=== PATIENT | female | born 1955 | race Caucasian/White ===

== ENCOUNTER → 2017-03-07 | Outpatient (CLI) | payer OTHER ==
[~2017-03-07] MED LIST: CLR10 PO; DVN80 PO; FLUT0.0529; HYDR25TA5 PO; IBUP-1050 PO; MULT-413 PO; OLOP0.1S3 OP; OMEP40CA PO; ZNTT/150 PO
--- NOTE | 2017-03-08 07:53 | MAMMOGRAPHY REPORT ---
BILATERAL DIGITAL SCREENING MAMMOGRAM TOMOSYNTHESIS WITH CAD: 03/07/2017 CLINICAL HISTORY: Routine screening. Patient has no complaints. TECHNIQUE: Breast tomosynthesis in addition to standard 2D mammography was performed. Current study was also evaluated with a Computer Aided Detection (CAD) system. COMPARISON: Comparison is made to exams dated: 02/09/2016 mammogram, 02/04/2015 mammogram, 04/09/2014 mammogram, 04/09/2014 aspiration, 03/02/2014 mammogram, and 03/02/2014 ultrasound - [facility]. BREAST COMPOSITION: There are scattered areas of fibroglandular density in both breasts. FINDINGS: No suspicious masses, calcifications, or areas of architectural distortion are noted in ei ther breast. There has been no significant interval change compared to prior exams. Scattered bilate ral benign calcifications are again noted. Mass with associated coarse calcifications in the left up per inner quadrant is stable and compatible with a degenerating fibroadenoma. IMPRESSION: ACR BI-RADS CATEGORY 2: BENIGN There is no mammographic evidence of malignancy. A 1 year screening mammogram is recommended. The pa tient will receive written notification of the results. Approximately 10% of breast cancers are not detected with mammography. A negative mammographic report should not delay biopsy if a clinically suggestive mass is present. Elena Avery M.D. /:03/07/2017 16:30:32 Draw Operator: Kami LYNCH)(Vicky), [facility] letter sent: Normal 1/2 BI-RADS Code: ACR BI-RADS Category 2: Benign
== END | disposition home or self-care (01) ==
LOC: C.MAMM 16:04
PROVIDERS: ATTEND Family Medicine
DX: Z12.31 Encounter for screening mammogram for malignant neoplasm of breast (principal)

== ENCOUNTER 2018-12-01 06:58 | Observation (INO) ==
--- NOTE | 2018-11-24 14:48 | Anesthesiology Consultation ---
Date of Service November 24, 2018 Assessment & Plan (1) Encounter for pre-operative examination: CHECK BSG AM DOS Chart Review Chart Review: Acceptable Risk for Surgery and Patient NOT seen in Pre Admission Testing History Surgery Operation Date: 12/01/18 08:20 Proposed Procedures p Bilateral Mastectomy - Caden Earl MD Height/Weight Height: 5 ft 3.5 in Weight: 106.594 kg Allergies Allergy/AdvReac Type Severity Reaction Status Date / Time adhesive Allergy Unknown ITCHING Verified 11/24/18 08:03 ketoconazole Allergy Unknown UNKNOWN Verified 11/24/18 08:03 pantoprazole Allergy Unknown UNKNOWN Verified 11/24/18 08:03 REACTION, PT. CAN TAKE PRILOSEC Penicillins Allergy Unknown HIVES Verified 11/24/18 08:03 losartan AdvReac Unknown HEARTBURN Verified 11/24/18 08:03 levofloxacin [From Levaquin] AdvReac Migraine Unverified 11/24/18 08:03 Medications Home Medications Medication Instructions Recorded Confirmed Last Taken allopurinol 300 mg PO QAM 07/14/18 11/24/18 Unknown biotin 1,000 mcg PO DAILY 07/14/18 11/24/18 Unknown candesartan [Atacand] 16 mg PO QAM 07/14/18 11/24/18 Unknown cholecalciferol (vitamin D3) 1,000 unit PO DAILY 07/14/18 11/24/18 Unknown [Vitamin D3] hydrochlorothiazide 12.5 mg PO QAM 07/14/18 11/24/18 Unknown levothyroxine 37.5 mcg PO HS 07/14/18 11/24/18 Unknown loratadine 10 mg PO DAILY PRN 07/14/18 11/24/18 Unknown lfkxfvhkemhl-Pv-gnpd-minerals 1 tab PO DAILY 07/14/18 11/24/18 Unknown [Multiple Vitamin, Womens] omeprazole 40 mg PO QAM 07/14/18 11/24/18 Unknown triamcinolone acetonide 1 applic TOPICAL BID PRN 07/14/18 11/24/18 Unknown anastrozole 1 mg PO QAM 11/24/18 11/24/18 Unknown Past Medical History Medical History Intracranial meningioma (Resolved 01/05/13) s/p resection 2010. Breast cancer RIGHT BREAST CANCER. DX'D NOVEMBER 2017. CHEMOTHERAPY (LAST 6.2019) Hypertension Diabetes mellitus, type 2 NO MEDICATIONS CURRENTLY. CONTROLING WITH DIET AND EXERCISE. GERD (gastroesophageal reflux disease) Hypothyroidism MALToma HX Morbid obesity Osteoarthritis Port-A-Cath in place Pulmonary embolism 2013. UNKNOWN REASON. Stage 3 chronic kidney disease Past Family History Family History Mother Family history of diabetes mellitus Grandmother (Maternal) Family history of diabetes mellitus Aunt Family history of diabetes mellitus Past Surgical History Surgical History H/O arthroscopy of shoulder BILATERAL History of arthroscopy LEFT History of bilateral tubal ligation History of carpal tunnel release BILATERAL History of section X1 History of cholecystectomy History of colonoscopy History of craniotomy 2010 [facility] ([place]), "Smooth IV induction; intubation with MAC 3 x 1 attempt. Grade II view." History of dilatation and curettage History of esophagogastroduodenoscopy (EGD) History of hysterectomy VAGINAL History of repair of rotator cuff RIGHT Hx of lumpectomy X2 RIGHT BREAST WITH LYMPH NODES REMOVED Social History Smoking Status: Never smoker Do You Dip or Chew Tobacco: No Hx Alcohol Use: No Hx Substance Use: No substance use type: does not use Testing Laboratory Results 11/19/18 WBC: 5.95 H/H: 12.5/38.5 PLATELETS: 107 SODIUM: 141 POTASSIUM: 4.0 CHLORIDE: 102 CO2: 29 BUN: 12 CREATININE: 1.0 GLUCOSE: 131 Electrocardiogram Date: 07/14/18 Findings: + NSR @ (79) Echocardiogram Date: 08/15/18 EF: 60-65% Normal LV size and wall thickness. LVEF 60 to 65%. Abnormal septal motion. RV well not visualized. Grossly normal size and function. No significant valvular pathology. Compared with prior study on 06/01/2013, no significant changes. Other Testing Chest CTA 07/14/18 IMPRESSION: 1. No acute aortic pathology or evidence of pulmonary thromboembolic disease. 2. No focal airspace consolidation to suggest pneumonia. 3. Mild bilateral bronchial wall thickening suggests bronchitis or reactive airway disease. 4. Cholecystectomy.
[~2018-12-01 06:58] MED LIST changes: -CLR10 PO; +DEXAMETHASONE SOD INJ 4 MG/ML VIAL ONE; -DVN80 PO; -FLUT0.0529; +GLYCOPYRROLATE 0.2 MG/ML VIAL ONE; -HYDR25TA5 PO; -IBUP-1050 PO; +LARYING-O-JET KIT (LTA) ONE; +LIDOCAINE HCL 2% 2 ML VIAL/AMP(20MG/ML) INFIL ONE; +LR 15ML/HR IV SCH; +MIDAZOLAM HCL 1 MG/ML 2ML VIAL ONE; -MULT-413 PO; +NEOSTIGMINE METHYLSULFATE 5 MG/5 ML SYR ONE; -OLOP0.1S3 OP; -OMEP40CA PO; +ONDANSETRON INJ 2 MG/ML 2 ML VIAL ONE; +PHENYLEPHRINE 100MCG/ML 5ML SYR ONE; +PROPOFOL IV EMULSION 10 MG/ML 20 ML VIAL IV ONE; +ROCURONIUM BROMIDE 10 MG/ML 5 ML VIAL ONE; -ZNTT/150 PO; +ePHEDrine sulfate 50 MG/ML SYR ONE; +fentaNYL citrate 100 MCG/2 ML VIAL ONE
[2018-12-01] MEDS ORDERED: ATROPINE SULFATE 0.1 MG/ML 10ML SYR IV PRN (07:44)
[2018-12-01] MEDS ORDERED: LABETALOL HCL IV 5 MG/ML 20ML IV PRN (07:44)
[2018-12-01] MEDS ORDERED: HYDROmorphone INJ 1 MG/ML SYRINGE IV PRN (07:44)
[2018-12-01] MEDS ORDERED: ONDANSETRON INJ 2 MG/ML 2 ML VIAL IV PRN ×2 (07:44→13:25)
[2018-12-01] MEDS ORDERED: PROMETHAZINE HCL 12.5 MG in SODIUM CHLORIDE 0.9% 50 ML IV PRN (07:44)
[2018-12-01] MEDS ORDERED: METHYLENE BLUE 0.5% 10 ML VIAL ONE (07:59)
--- NOTE | 2018-12-01 08:10 | History & Physical Bridge Note ---
Date of Service December 01, 2018 History & Physical Bridge Note I have examined the patient, reviewed the History & Physical and in the interval since the performance of the History & Physical I have noted the following changes of clinical significance: no changes noted
[2018-12-01] MEDS ORDERED: HYDROmorphone INJ 2 MG/ML SYR/VIAL ONE (09:13)
[2018-12-01] MEDS ORDERED: ONDANSETRON INJ 2 MG/ML 2 ML VIAL ONE (09:38)
[2018-12-01] MEDS ORDERED: DEXAMETHASONE SOD INJ 4 MG/ML VIAL ONE (09:38)
[2018-12-01] MEDS ORDERED: PHENYLEPHRINE HCL 10 MG/ML VIAL ONE (10:41)
[2018-12-01] MEDS ORDERED: GLYCOPYRROLATE 0.2 MG/ML VIAL ONE (10:46)
[2018-12-01] MEDS ORDERED: NEOSTIGMINE METHYLSULFATE 5 MG/5 ML SYR ONE (10:46)
[2018-12-01] MEDS ORDERED: ROCURONIUM BROMIDE 10 MG/ML 5 ML VIAL ONE (10:46)
--- NOTE | 2018-12-01 11:49 | Post Operative Brief Note ---
Immediate Post Op Note v1 Date of Surgery December 01, 2018 Pre & Post Diagnosis Operation Date: 12/01/18 08:20 Pre-Op Diagnosis: Malignant Neoplasm of Central Portion of Right female breast, unspecified estrogen receptor status Post-Op Diagnosis: Malignant Neoplasm of Central Portion of Right female breast, unspecified estrogen receptor status Procedure Operation Date: 12/01/18 08:20 Actual Procedures p Bilateral Mastectomy(Bilateral) - Caden Earl MD Surgeon Caden Earl MD Hospice Social Worker Mary Carranza PA-C Estimated Blood Loss 50 Findings Consistent with Post-Op Diagnosis Specimens Left breast Right breast Drains Kolton-Hollingsworth Drain (10 flat, bilateral breasts) Anesthesia Type General Complications none
--- NOTE | 2018-12-01 12:45 | Anesthesiology Progress Note ---
Date of Service December 01, 2018 Anesthesia Post Procedure Vital Signs Vital Signs: Temp Pulse Resp BP Pulse Ox 12/01/18 12:35 86 15 108/85 96 12/01/18 12:25 99 H 15 108/85 99 12/01/18 12:15 90 15 121/73 96 12/01/18 12:05 36 C L 105 H 20 129/61 94 12/01/18 07:33 36.8 C 80 17 130/84 94 Transfer of Care Handoff Completed per policy Notes Mental Status: alert / awake / arousable Patient Amnestic to Procedure: Yes Nausea / Vomiting: adequately controlled Pain: adequately controlled Airway Patency, RR, SpO2: stable & adequate BP & HR: stable & adequate Hydration State: stable & adequate Anesthetic Complications: no major complications apparent
[2018-12-01] MEDS ORDERED: MoRPHine SULFATE 4 MG/ML 1 ML CARP\\VIAL IV PRN (13:25)
[2018-12-01] MEDS ORDERED: LORATADINE 10 MG TAB PO PRN (13:25)
[2018-12-01] MEDS ORDERED: OXYCODONE/ACETAMINOPHEN 5mg/325mg TAB PO PRN (13:25)
[2018-12-01] MEDS ORDERED: LEVOTHYROXINE SODIUM 75 MCG TABLET PO SCH (21:00)
--- NOTE | 2018-12-02 01:43 | Operative Report ---
DATE OF OPERATION: 12/01/2018 PREOPERATIVE DIAGNOSIS: Recurrent cancer of the right breast. POSTOPERATIVE DIAGNOSIS: Recurrent cancer of the right breast. PROCEDURE: Bilateral mastectomy. SURGEON: Caden Earl MD NEON SIGN WORKER: Mary Carranza PA-C FINDINGS: At no time was the biopsy cavity encountered in the right breast. There was a lot of scar tissue and thickening of the attachments of the prepectoral fascia to the underlying pectoralis major muscle. The patient had previously had an axillary lymph node dissection, so that was not included in the procedure. There were no abnormalities noted of the left breast. TECHNIQUE: The patient was given a general anesthetic and the area was prepped and draped in the usual sterile fashion. The sternal borders, clavicles, and inferior breast crease were marked. The right breast was approached first. The skin incision was sketched in an elliptical fashion on the breast. The superior portion of that incision was made and hemostasis was obtained using electrocautery. The superior flap was then created keeping the flap thin. It was dissected up to the clavicle and from the lateral border of the sternum laterally to beyond the lateral border of pectoralis major. The inferior portion of the elliptical incision was then made, carried down through the subcutaneous tissue and the inferior flap was performed, keeping the breast tissue superiorly and the flap inferiorly and this was dissected down to the superior aspect of the rectus fascia along the length of that incision as well. Hemostasis was obtained using electrocautery and there were several enlarged veins that had to be clamped and ligated with 2-0 Vicryl ties. Once that dissection was completed, I then worked laterally, freeing the attachments of the skin and working up towards the axilla to include the tail of the breast. Then beginning medially the prepectoral fascia was opened and the prepectoral fascia was then peeled off the underlying fascia working from medial to lateral. This required dissection using cautery and some sharp dissection in that the attachments were more thickened. I eventually reached the lateral border of the pectoralis major muscle and then dissected the tissue away from the chest wall on that side leaving only the remaining skin attachments laterally and these were divided under direct vision using cautery. The breast was removed. It was marked medially with a Vicryl stitch. Meticulous hemostasis was then obtained throughout the prepectoral area as well as laterally. The wound was irrigated and the irrigation was removed. A small stab incision was made inferior to the incision through which was brought a 10-mm Kolton-Hollingsworth flat drain. This was secured at the skin level with a 3-0 nylon. The skin incision was then closed using interrupted 2-0 Vicryl in the deep subcutaneous tissue, a running 3-0 Vicryl in the superficial subcutaneous tissue, and a running 4-0 Monocryl for the skin. Attention was then turned to the left breast. This too had been marked. The skin incision was sketched and the elliptical incision was made. The superior portion of the incision was made first and the superior skin flap was created from the lateral border of the sternum up to the clavicle and then laterally to the lateral border of pectoralis major. The skin attachments to the tail of the breast were divided as well. Hemostasis was again obtained using cautery and there were some large veins encountered there that had to be clamped and divided as well. The inferior portion of the incision was made and carried through the subcutaneous tissue and then working down towards the superior aspect of the rectus fascia, the dissection was performed. Once that was completed, working from medial again to lateral the prepectoral fascia was peeled off the underlying pectoralis major muscle. This dissection was easier than the right side in that there were none of the scarred attachments. This dissection was then carried laterally beyond pectoralis major muscle and then the dissection off the chest wall was performed. The final lateral attachments of the skin were divided. Inferiorly, it appeared as though the flap was thick. I then performed further dissection beginning at the subcutaneous level and working down towards the fascia again. There was about 2 cm thick tissue across the inferior portion of the pectoralis major that was . This was then peeled off pectoralis major underneath and sent as a separate specimen. The flap was then felt to be of appropriate thickness. Meticulous hemostasis was obtained using electrocautery. A separate stab incision was made inferior to the incision through which a 10-mm Kolton-Hollingswotrh was brought. It was placed across the chest wall and secured with 3-0 nylon at the skin level. The flaps were then approximated. There was overlapping skin and the superior flap was felt to be redundant. This was resected. A line for resection was marked and the skin incision was made and was removed using cautery. This allowed for an approximation of the edges of the skin without tension, but without redundancy. The deep subcutaneous tissue was closed with interrupted 2-0 Vicryl. The superficial subcutaneous tissue was closed with running 3-0 Vicryl and the skin was closed with 4-0 Monocryl in a running subcuticular fashion. The skin was cleansed, dried, benzoin placed, and Steri-Strips applied on both incisions. A dressing was placed. The estimated blood loss was 50 mL. Sponge, needle and instrument counts were correct prior to closure. The patient tolerated the surgical procedure without complication and was transferred to recovery. I attest to the content of the Intraoperative Record and any orders documented therein. Any exception s are noted below.
[2018-12-02] MEDS ORDERED: OMEPRAZOLE 20 MG CAPCR PO SCH (09:00)
[2018-12-02] MEDS ORDERED: CANDESARTAN CILEXETIL PO SCH (09:00)
[2018-12-02] MEDS ORDERED: ANASTROZOLE 1 MG TAB PO SCH (09:00)
[2018-12-02] MEDS ORDERED: CHOLECALCIFEROL 1,000 UNITS TAB PO SCH (09:00)
[2018-12-02] MEDS ORDERED: hydroCHLOROthiazide 25 MG TAB PO SCH (09:00)
--- NOTE | 2018-12-02 10:59 | Surgery Progress Note ---
Date of Service December 02, 2018 Assessment & Plan (1) Breast cancer: POD #1 S/P bilateral mastectomies Doing well Drains functioning Dressings changed Ambulating Can D/C to home Drain care discussed Activity instructions discussed F/U has been scheduled Subjective POD #1 s/P bilateral mastectomy Pain is mild and only with movement Tolerated regular diet Had nausea yesterday, none today J-P #1: 40 cc last shift; J-P #2: 30 cc last shift Physical Exam Chest (Breasts): Additional Comments: Bilateral mastectomy incisions clean and dry, no erythema Results & Data Vital Signs (Past 12 Hours) Vital Signs Temp Pulse Resp BP Pulse Ox 12/02/18 08:40 110/74 12/02/18 07:31 36.6 C 97 H 18 94/58 L 99 12/02/18 03:16 36.9 C 94 H 15 101/64 98 12/01/18 23:06 36.5 C 94 H 15 103/65 97
--- NOTE | 2018-12-05 07:36 | Discharge Summary ---
Date of Service December 05, 2018 Admission HPI Per Admitting Provider Fatemeh presented to [facility] for bilateral simple mastectomy for recurrent right breast cancer and prophylactic left mastectomy by Dr. Earl. History of prior right lumpectomy with positive margins and re- excision with positive margins of DCIS. She also had right axillary dissection and chemotherapy. Principal Diagnosis Recurrent right bright cancer Discharge Data Allergies Allergy/AdvReac Type Severity Reaction Status Date / Time adhesive Allergy Unknown ITCHING Verified 12/01/18 07:26 ketoconazole Allergy Unknown UNKNOWN Verified 12/01/18 07:26 pantoprazole Allergy Unknown UNKNOWN Verified 12/01/18 07:26 REACTION, PT. CAN TAKE PRILOSEC Penicillins Allergy Unknown HIVES Verified 12/01/18 07:26 losartan AdvReac Unknown HEARTBURN Verified 12/01/18 07:26 levofloxacin [From Levaquin] AdvReac Migraine Unverified 12/01/18 07:26 Procedures Performed Operation Date: 12/01/18 08:20 Actual Procedures p Bilateral Mastectomy(Bilateral) - Caden Earl MD Hospital Course (1) Breast cancer: Patient was taken to operating room for bilateral simple mastectomy without reconstruction by Dr. Earl. Patient tolerated procedure well and was transferred to recovery and then to medical/surgical floor for post op care. She was started on regular diet, Percocet prn pain, home medications, activity as tolerated, and surgical drains were monitored. POD #1 vitals stable, pain controlled, drains funcitioning. Patient was discharged home on POD # 1 in sta ble condition. Total Time Total Time Spent Total Time Spent (In Minutes): 20 Total Time Includes: Examination of the Patient, Discharge Planning and Medication Reconciliation Discharge Plan Discharge Items Patient Disposition: Home - Self-Care Reason For Visit: Malignant Neoplasm of Central Portion of Right Fem Discharge Diagnosis: S/P bilateral mastectomy Discharge Goals: Improve disease control Activity: Per 'Additional Instructions' section Non-emergency contact: Surgeon Call non-emergency contact if: your temperature is above 101.5 and your wound has increased redness Follow-up/Referrals: Jose Sarah MD [Primary Care Provider] - Diet: Regular Addtl Provider Instructions: No lifting more than 10 pounds Empty drains and record amounts and times Change dressing daily Sponge bath until drains are removed Prescriptions: New oxycodone-acetaminophen [Percocet] 5-325 mg Tablet 1 tab PO Q4H PRN (Reason: pain) Qty: 10 RF: 0 Continued anastrozole 1 mg Tablet 1 mg PO QAM RF: 0 levothyroxine 75 mcg tablet 37.5 mcg PO HS RF: 0 hydrochlorothiazide 25 mg tablet 12.5 mg PO QAM RF: 0 allopurinol 300 mg tablet 300 mg PO QAM RF: 0 candesartan [Atacand] 16 mg Tablet 16 mg PO QAM RF: 0 omeprazole 40 mg capsule,delayed release(DR/EC) 40 mg PO QAM RF: 0 loratadine 10 mg Tablet 10 mg PO DAILY PRN (Reason: Allergy Symptoms) RF: 0 Multiple Vitamin, Womens Tablet 1 tab PO DAILY RF: 0 cholecalciferol (vitamin D3) [Vitamin D3] 1,000 unit Tablet 1,000 unit PO DAILY RF: 0 biotin 1,000 mcg Tablet,Chewable 1,000 mcg PO DAILY RF: 0 triamcinolone acetonide 0.1 % Cream 1 applic TOPICAL BID PRN (Reason: Skin Irritation) RF: 0 Stand-Alone Forms: [employer] [facility], [facility]/Other Patient Handouts: Tube Kolton Hollingsworth Drainage Care Discharge Orders: Discharge Order (Routine); Ordered 12/02/18 Ordered By: Caden Earl Admission Data Admit Date/Time: 12/01/18 12:55 Attending Provider: Caden Earl Admit Provider: Caden Earl Primary Care Provider: Jose Sarah Service: Surgical Services Other Interventions: Discharge Summary Assessment (RN) Last Done: 12/02/18 12:44 Pending Studies at Discharge: Yes Studies:: Pathology DC Date/Time DO NOT enter until pt leaves facility: 12/02/18 14:04
--- NOTE | 2018-12-12 15:48 | Surgery Consultation ---
Date of Consultation December 12, 2018 Assessment & Plan (1) Status post bilateral mastectomy: There does not appear to be infection or active bleeding at the present time. Would continue with drains for now. (2) Hypotension: Etiology of this is unclear. Her white blood cell count is elevated. The source is not obvious. It does not appear to be the surgical sites. Blood cultures were drawn and are pending. The 8 port is a potential source. Testing for etiology as per internal medicine. Dr. Birch will be covering for me over the weekend. History of Present Illness Requesting Physician: Dr. Simeon Attending Physician: Caden Ealr MD History of Present Illness I have been asked by Dr. Simeon 62-year-old female that we sent over from the office today for evaluation. The patient underwent a bilateral mastectomy on December 01. She was discharged the next day. She was doing well until yesterday when she began to feel weak. She described dizziness in the office. She had some red material coming from the drain on the right. The left-sided drain was more of a serous color. She has had no pain of the chest wall. There is been no erythema of the skin. There is been no erythema around the drain sites. She has had 20 to 50 cc/day coming from the left-sided drain and has had 150 cc/day of clear to pink material from the right-sided drain. She denies fever. She has not had any chills. She denies dysuria and hematuria. She has not had any shortness of breath. The dizziness is mostly when she is sitting or standing. It seems to resolve if she lies down. She has no nausea or vomiting. She has been able to eat. In the office today she had evidence of orthostatic hypotension and therefore I recommended she present to the emergency room. Allergies Allergy/AdvReac Type Severity Reaction Status Date / Time adhesive Allergy Unknown ITCHING Verified 12/12/18 13:27 ketoconazole Allergy Unknown UNKNOWN Verified 12/12/18 13:27 pantoprazole Allergy Unknown UNKNOWN Verified 12/12/18 13:27 REACTION, PT. CAN TAKE PRILOSEC Penicillins Allergy Unknown HIVES Verified 12/12/18 13:27 losartan AdvReac Unknown HEARTBURN Verified 12/12/18 13:27 levofloxacin [From Levaquin] AdvReac Migraine Unverified 12/12/18 13:27 Home Medications Home Medications Medication Instructions Recorded Confirmed Type Multiple Vitamin, Womens 1 tab PO DAILY 07/14/18 12/12/18 History allopurinol 300 mg PO QAM 07/14/18 12/12/18 History biotin 1,000 mcg PO DAILY 07/14/18 12/12/18 History candesartan [Atacand] 16 mg PO QAM 07/14/18 12/12/18 History cholecalciferol (vitamin D3) 1,000 unit PO DAILY 07/14/18 12/12/18 History [Vitamin D3] hydrochlorothiazide 12.5 mg PO QAM 07/14/18 12/12/18 History levothyroxine 37.5 mcg PO HS 07/14/18 12/12/18 History loratadine 10 mg PO DAILY PRN 07/14/18 12/12/18 History omeprazole 40 mg PO QAM 07/14/18 12/12/18 History triamcinolone acetonide 1 applic TOPICAL BID PRN 07/14/18 12/12/18 History anastrozole 1 mg PO QAM 11/24/18 12/12/18 History benzonatate [Tessalon Perles] 100 mg PO TID PRN 12/12/18 12/12/18 History ondansetron HCl [Zofran] 8 mg PO TID PRN 12/12/18 12/12/18 History prochlorperazine maleate 10 mg PO Q6H PRN 12/12/18 12/12/18 History [Compazine] Patient History Medical History Pulmonary embolism (Resolved) 2013. UNKNOWN REASON. Osteoarthritis (Chronic) MALToma (Chronic) HX Port-A-Cath in place (Chronic) Morbid obesity (Chronic) Hypothyroidism (Chronic) GERD (gastroesophageal reflux disease) (Chronic) CKD (chronic kidney disease), stage III (Chronic) Diabetes mellitus, type II (Chronic) Intracranial meningioma (Resolved 01/05/13) s/p resection 2010. Breast cancer (Chronic) RIGHT BREAST CANCER. DX'D NOVEMBER 2017. CHEMOTHERAPY (LAST ) Hypertension (Chronic) Surgical History Hx of lumpectomy (Chronic) X2 RIGHT BREAST WITH LYMPH NODES REMOVED History of dilatation and curettage (Chronic) History of hysterectomy (Chronic) VAGINAL History of bilateral tubal ligation (Chronic) History of section (Chronic) X1 History of arthroscopy (Chronic) LEFT H/O arthroscopy of shoulder (Chronic) BILATERAL History of repair of rotator cuff (Chronic) RIGHT History of carpal tunnel release (Chronic) BILATERAL History of colonoscopy (Chronic) History of esophagogastroduodenoscopy (EGD) (Chronic) History of cholecystectomy (Chronic) History of craniotomy (Chronic) 2010 [facility] ([place]), "Smooth IV induction; intubation with MAC 3 x 1 attempt. Grade II view." S/P bilateral mastectomy 11/30/18 Family History Mother Family history of diabetes mellitus Grandmother (Maternal) Family history of diabetes mellitus Aunt Family history of diabetes mellitus Social History Preferred Language: [place]er Communication Ability: Effective Bottle Selector Required: No Beliefs That Will Affect Care: None marital status: Current Living Situation: Spouse Feels Safe at Home: Yes Smoking Status: Never smoker Second Hand Exposure: No ; Hx Alcohol Use: No Hx Substance Use: No Review of Systems Review of Systems: All systems reviewed & are unremarkable except as noted in HPI & below Physical Exam Constitutional: no acute distress Neck: trachea midline Respiratory: normal respiratory effort, lungs clear to auscultation Cardiovascular: Rate/Rhythm: regular rate and regular rhythm Chest (Breasts): Additional Comments: Status post bilateral mastectomy, drain sites are clean and dry. pink drainage from the right side and serous drainage from the left side. There is swelling beneath the incisions but there is no tenderness or function once. There is no skin erythema. The incisions are intact. Gastrointestinal (Abdomen): normal bowel sounds, soft, nontender, no hepatosplenomegaly Results & Data Laboratory Results WBC 19.11, H&H 10.5 and 11.2, platelet count 110,000, sodium 134, potassium 3.5, chloride 96, CO2 25, BUN 18, creatinine 1.3, glucose 140, ionized calcium 1.14 Diagnostic Findings Chest x-ray shows right internal jugular MediPort terminating at the confluence of the right internal jugular vein and right subclavian vein. The cardiomediastinal silhouette is normal. There are no focal opacities. There is mild pulmonary vascular prominence. There is no pleural effusion or pneumothorax. This is all suggesting possible mild volume overload.
== END 2018-12-02 14:04 | disposition home or self-care (01) ==
LOC: ASU 06:58 → 3W 06:58
DX: D05.11 Intraductal carcinoma in situ of right breast; Z88.8 Allergy status to other drugs, medicaments and biological substances; K21.9 Gastro-esophageal reflux disease without esophagitis; D24.2 Benign neoplasm of left breast; L82.1 Other seborrheic keratosis; E11.22 Type 2 diabetes mellitus with diabetic chronic kidney disease; Z79.899 Other long term (current) drug therapy; Z88.0 Allergy status to penicillin; E66.01 Morbid (severe) obesity due to excess calories; Z68.41 Body mass index [BMI] 40.0-44.9, adult; Z88.1 Allergy status to other antibiotic agents; E03.9 Hypothyroidism, unspecified; I10 Essential (primary) hypertension

== ENCOUNTER 2018-12-12 11:44 | Inpatient (IN) ==
[2018-12-12] MEDS ORDERED: SODIUM CHLORIDE 0.9% 1000ML 1,000 ML IV SCH (12:15)
--- NOTE | 2018-12-12 12:33 | XRay Report ---
XR chest 1V portable CLINICAL HISTORY: 62 years-old Female presenting with weakness. TECHNIQUE: Portable upright AP view of the chest was obtained. COMPARISON: 02/02/2011 and CTA chest from 07/14/2018. FINDINGS: Right internal jugular Mediport terminates at the confluence of the right internal jugular vein and r ight subclavian vein. Cardiomediastinal silhouette normal. Mildly low lung volumes with hypoventilato ry changes. No focal opacity. Mild pulmonary vascular prominence. No pleural effusion or pneumothorax . Degenerative changes of the thoracic spine. Surgical drain may be in place in the left upper quadra nt or other radiopaque foreign body. IMPRESSION: 1. Mild volume overload may be present. No other evidence of acute cardio pulmonary disease. Electronically signed by: Rico Faulkner M.D. 12/12/2018 12:32 PM
--- NOTE | 2018-12-12 12:56 | Emergency Department Note ---
Entered by She Barth acting as a scribe for Gustavo Nelson MD History of Present Illness General Chief complaint: Dizziness Time Seen by Provider: 12/12/18 12:05 Source: patient History of Present Illness Onset (ago): day(s) 1 Location: head Pain Consistency: + other (episode) Quality: + other (dizziness) Exacerbated By: + movement (positional changes) Associated symptoms: + denies other symptoms (trauma, injury, fever, changes in bowel movements, loss of consciousness, vomiting, abdominal pain, or changes in her appetite or fluid intake) and + other (low blood pressure, fall) The patient is a 62 year old female with a history of a breast cancer and a bilateral mastectomy that is presenting to the Emergency Room with complaints of an episode of dizziness that started yesterday morning. The patient reports that the dizzy sensation worsens with positional changes. She notes that she fell into her bed this morning secondary to her symptoms but she denies any trauma or injury from the fall. She states that she had a bilateral mastectomy 11 days ago on 12/01/18. She notes that she was seeing the provider who completed her surgery today for drainage issues when the provider noted that the patients blood pressure was low. She reports that her blood pressure dropped to 60 systolic upon standing. She states that the provider referred her to the ED for further evaluation. She notes that her provider did not find any significant drainage issues on exam. She denies any fever, changes in bowel movements, loss of consciousness, vomiting, abdominal pain, or changes in her appetite or fluid intake. She notes that she has had a dry cough since her surgery, and she states that her PCP started her on Delsym to manage her symptoms. She denies any other significant changes to her medication regiment since the surgery. She denies any significant complications after her surgery. The patient reports that she completed chemotherapy earlier this year and that she received her last treatment in September. She notes that she had her port flushed 4 days ago. Home Medications Home Medications Medication Instructions Recorded Confirmed Type Multiple Vitamin, Womens 1 tab PO DAILY 07/14/18 12/12/18 History allopurinol 300 mg PO QAM 07/14/18 12/12/18 History biotin 1,000 mcg PO DAILY 07/14/18 12/12/18 History candesartan [Atacand] 16 mg PO QAM 07/14/18 12/12/18 History cholecalciferol (vitamin D3) 1,000 unit PO DAILY 07/14/18 12/12/18 History [Vitamin D3] hydrochlorothiazide 12.5 mg PO QAM 07/14/18 12/12/18 History levothyroxine 37.5 mcg PO HS 07/14/18 12/12/18 History loratadine 10 mg PO DAILY PRN 07/14/18 12/12/18 History omeprazole 40 mg PO QAM 07/14/18 12/12/18 History triamcinolone acetonide 1 applic TOPICAL BID PRN 07/14/18 12/12/18 History anastrozole 1 mg PO QAM 11/24/18 12/12/18 History benzonatate [Tessalon Perles] 100 mg PO TID PRN 12/12/18 12/12/18 History ondansetron HCl [Zofran] 8 mg PO TID PRN 12/12/18 12/12/18 History prochlorperazine maleate 10 mg PO Q6H PRN 12/12/18 12/12/18 History [Compazine] Allergies Allergy/AdvReac Type Severity Reaction Status Date / Time adhesive Allergy Unknown ITCHING Verified 12/12/18 13:27 ketoconazole Allergy Unknown UNKNOWN Verified 12/12/18 13:27 pantoprazole Allergy Unknown UNKNOWN Verified 12/12/18 13:27 REACTION, PT. CAN TAKE PRILOSEC Penicillins Allergy Unknown HIVES Verified 12/12/18 13:27 losartan AdvReac Unknown HEARTBURN Verified 12/12/18 13:27 levofloxacin [From Levaquin] AdvReac Migraine Unverified 12/12/18 13:27 Past Med/Surg History Medical History Pulmonary embolism (Resolved) 2013. UNKNOWN REASON. Osteoarthritis (Chronic) MALToma (Chronic) HX Port-A-Cath in place (Chronic) Morbid obesity (Chronic) Hypothyroidism (Chronic) GERD (gastroesophageal reflux disease) (Chronic) CKD (chronic kidney disease), stage III (Chronic) Diabetes mellitus, type II (Chronic) Intracranial meningioma (Resolved 01/05/13) s/p resection 2010. Breast cancer (Chronic) RIGHT BREAST CANCER. DX'D NOVEMBER 2017. CHEMOTHERAPY (LAST ) Hypertension (Chronic) Surgical History Hx of lumpectomy (Chronic) X2 RIGHT BREAST WITH LYMPH NODES REMOVED History of dilatation and curettage (Chronic) History of hysterectomy (Chronic) VAGINAL History of bilateral tubal ligation (Chronic) History of section (Chronic) X1 History of arthroscopy (Chronic) LEFT H/O arthroscopy of shoulder (Chronic) BILATERAL History of repair of rotator cuff (Chronic) RIGHT History of carpal tunnel release (Chronic) BILATERAL History of colonoscopy (Chronic) History of esophagogastroduodenoscopy (EGD) (Chronic) History of cholecystectomy (Chronic) History of craniotomy (Chronic) 2010 [facility] ([place]), "Smooth IV induction; intubation with MAC 3 x 1 attempt. Grade II view." S/P bilateral mastectomy 11/30/18 Family History Mother Family history of diabetes mellitus Grandmother (Maternal) Family history of diabetes mellitus Aunt Family history of diabetes mellitus Social History Preferred Language: Pashto Communication Ability: Effective Psychic Reader Required: No Beliefs That Will Affect Care: None marital status: Current Living Situation: Spouse Other Information That Helps Us Care for You: No Feels Safe at Home: Yes Safety Concerns: Feels Safe At This Time Smoking Status: Never smoker Do You Dip or Chew Tobacco: No ; Second Hand Exposure: No ; Tobacco Cessation Education Requested by Patient: No Hx Alcohol Use: No Hx Substance Use: No Review of Systems See HPI for pertinent positives & negatives. and A total of 10 systems reviewed and were otherwise negative Physical Exam Vital Signs Vital Signs - 24 hr 12/12/18 11:53 12/12/18 12:17 12/12/18 12:29 Temperature 36.8 C Temperature Source Oral Sepsis Recent Fever Within 48 Hours No Sepsis New/Unexplained Change in Mental Status No Sepsis Action Taken by Nursing No Action Required Pulse Rate 102 H Pulse Rate [Left Finger] 97 H Respiratory Rate 20 17 Respiratory Effort / Characteristics Non-Labored Non-Labored Respiratory Depth Normal Normal Respiratory Pattern Regular Regular Blood Pressure 96/58 L Blood Pressure [Left Arm] 95/63 L Blood Pressure Mean 70 Blood Pressure Mean [Left Arm] 73 Pulse Oximetry 96 92 96 Oxygen Delivery Method Room Air Room Air Room Air 12/12/18 13:06 12/12/18 13:56 Temperature Temperature Source Sepsis Recent Fever Within 48 Hours Sepsis New/Unexplained Change in Mental Status Sepsis Action Taken by Nursing Pulse Rate Pulse Rate [Left Finger] 93 H 97 H Respiratory Rate 16 19 Respiratory Effort / Characteristics Non-Labored Respiratory Depth Normal Respiratory Pattern Regular Blood Pressure Blood Pressure [Left Arm] 92/68 L 125/65 Blood Pressure Mean Blood Pressure Mean [Left Arm] 76 85 Pulse Oximetry 93 Oxygen Delivery Method Room Air GENERAL: Patient is in no acute distress. HEENT: No acute trauma, normocephalic atraumatic, mucous membranes moist, no nasal congestion, no scleral icterus. NECK: No stridor, no adenopathy, no meningismus, trachea is midline. LUNGS: Clear to auscultation bilaterally, no wheeze, no rhonchi, breath sounds equal. HEART: Without murmurs gallops or rubs, regular rate and rhythm. CHEST: Bilateral mastectomy incisions healing, no significant erythema or war mth, drains noted bilaterally, left drain fluid is yellow in color, right drain fluid is serosanguineous. ABDOMEN: Soft, nontender, bowel sounds positive, no hernias, no peritonitis. EXTREMITIES: No cyanosis or edema, full range of motion of all the joints without pain or difficulty, no signs for acute trauma. NEUROLOGIC: Oriented x 3, no acute motor or sensory deficits, no focal weakness. SKIN: No rash, no jaundice, no diaphoresis. Pale. Course 1208:The patient was evaluated in room A03. A complete history and physical examination was performed. 1310: I updated the patient on her current lab and imaging results. 1315: I discussed the patient's case with ALLAN Gary, who will evaluate the patient for further management and care with Dr. Simeon as the attending physician. 1324: I discussed the patients case with Dr. Earl, General Surgery, who referred the patient to the ED. He is agreeable with the treatment plan. 1330: Upon reevaluation, the patient is resting comfortably. I discussed laboratory and radiographic results with the patient. She verbalized agreement of the treatment plan. The patient will be evaluated for further management and care. Administered Medications Vancomycin HCl 2,500 mg/ (Sodium Chloride) 550 mls @ 200 mls/hr IV ONE ONE Stop: 12/12/18 20:29 Last Admin: 12/12/18 19:20 Dose: 200 mls/hr Documented by: [id number] Insulin Aspart (Novolog Flexpen) 0 units SC ACHS ORESTES Stop: 01/11/19 17:17 Last Admin: 12/12/18 19:15 Dose: 1 units Documented by: [id number] Cosigned by: [id number] Discontinued Medications Sodium Chloride (Nss 1000ml) 1,000 mls @ 999 mls/hr IV .Q1H1M ORESTES Stop: 12/12/18 13:15 Last Infusion: 12/12/18 14:01 Dose: 0 mls/hr Documented by: [id number] Admin: 12/12/18 12:56 Dose: 999 mls/hr Documented by: [id number] Cefepime HCl 2,000 mg/ Syringe 20 mls @ 5 mls/min IV NOW STA Stop: 12/12/18 13:22 Last Admin: 12/12/18 13:51 Dose: 5 mls/min Documented by: [id number] Medical Decision Making Differential Diagnosis Differential diagnosis: Etiologies such as dehydration, medication reaction, anemia, infection, sepsis, electrolyte imbalance, renal failure, liver failure, UTI as well as others were entertained. Medical Records Attestation: I reviewed the patient's medical records. Home Medications Current Medication List: was personally reviewed by me Laboratory Data Attestation: I reviewed the patient's lab results. Result diagrams: 12/12/18 12:30 12/12/18 12:30 Lab Results 12/12/18 12/12/18 12/12/18 Range/Units 12:30 12:30 12:30 WBC 19.11 H (4.8-10.8) K/uL RBC 3.66 L (4.2-5.4) M/uL Hgb 10.5 L (12.0-16.0) g/dL POC Hgb (12.0-16.0) g/dl Hct 32.4 L (37-47) % POC Hct (37-47) % MCV 88.5 (80-100) fL MCH 28.7 (25-34) pg MCHC 32.4 (32-36) g/dL RDW Std Deviation 48.1 H (36.4-46.3) fL RDW Coeff of Naila 14.8 H (11.5-14.5) % Plt Count 110 L (130-400) K/uL MPV 11.5 H (7.4-10.4) fL Immature Gran % (Auto) 0.3 % Neut % (Auto) 85.6 % Lymph % (Auto) 7.7 % [place] % (Auto) 6.1 % Eos % (Auto) 0.1 % Baso % (Auto) 0.2 % Immature Gran # (Auto) 0.06 H (0.00-0.02) K/uL Neut # (Auto) 16.36 H (1.4-6.5) K/uL Lymph # (Auto) 1.47 (1.2-3.4) K/uL [place] # (Auto) 1.17 H (0.11-0.59) K/uL Eos # (Auto) 0.02 (0-0.5) K/uL Baso # (Auto) 0.03 (0-0.2) K/uL PT 11.5 (9.0-12.0) Seconds INR 1.1 (0.9-1.1) POC Sodium (135-144) mEq/L Sodium 134 L (136-145) mmol/L POC Potassium (3.3-5.0) mEq/L Potassium 3.4 L (3.5-5.1) mmol/L POC Chloride (101-112) mEq/L Chloride 98 (98-107) mmol/L Carbon Dioxide 29 (21-32) mmol/L POC Total CO2 (24-31) mEq/l Anion Gap 7.0 (3-11) POC Anion Gap (16-25) mmol/L POC BUN (7-18) mg/dl BUN 19 H (7-18) mg/dl Creatinine 1.23 H (0.6-1.2) mg/dl POC Creatinine (0.6-1.3) mg/dl Est Cr Clr Drug Dosing 55.5 ml/min Est GFR ( Amer) 54.8 Est GFR (Non-Af Amer) 47.3 BUN/Creatinine Ratio 15.0 (10-20) Glucose 139 H (70-99) mg/dl POC Glucose (other) (70-99) mg/dl Lactate (0.4-2.0) mmol/L Calcium 8.7 (8.5-10.1) mg/dl POC Ioniz Calcium Raphael (1.12-1.32) mmol/l Magnesium 2.1 (1.8-2.4) mg/dl Total Bilirubin 0.6 (0.2-1) mg/dl AST 12 L (15-37) U/L ALT 16 (12-78) U/L Alkaline Phosphatase 48 (45-117) U/L Troponin I < 0.015 (0-0.045) ng/ml Total Protein 6.6 (6.4-8.2) gm/dl Albumin 2.7 L (3.4-5.0) gm/dl Globulin 3.9 (2.5-4.0) gm/dl Albumin/Globulin Ratio 0.7 L (0.9-2) TSH 3.100 (0.300-4.500) uIu/ml Urine Color Urine Appearance (Clear) Urine pH (4.5-7.5) Ur Specific [place] (1.000-1.030) Urine Protein (Negative) Urine Glucose (UA) (Negative) Urine Ketones (Negative) Urine Blood (Negative) Urine Nitrite (Negative) Urine Bilirubin (Negative) Urine Urobilinogen (Negative) Ur Leukocyte Esterase (Negative) 12/12/18 12/12/18 12/12/18 Range/Units 12:40 12:48 13:45 WBC (4.8-10.8) K/uL RBC (4.2-5.4) M/uL Hgb (12.0-16.0) g/dL POC Hgb 11.2 L (12.0-16.0) g/dl Hct (37-47) % POC Hct 33 L (37-47) % MCV (80-100) fL MCH (25-34) pg MCHC (32-36) g/dL RDW Std Deviation (36.4-46.3) fL RDW Coeff of Naila (11.5-14.5) % Plt Count (130-400) K/uL MPV (7.4-10.4) fL Immature Gran % (Auto) % Neut % (Auto) % Lymph % (Auto) % [place] % (Auto) % Eos % (Auto) % Baso % (Auto) % Immature Gran # (Auto) (0.00-0.02) K/uL Neut # (Auto) (1.4-6.5) K/uL Lymph # (Auto) (1.2-3.4) K/uL [place] # (Auto) (0.11-0.59) K/uL Eos # (Auto) (0-0.5) K/uL Baso # (Auto) (0-0.2) K/uL PT (9.0-12.0) Seconds INR (0.9-1.1) POC Sodium 134 L (135-144) mEq/L Sodium (136-145) mmol/L POC Potassium 3.5 (3.3-5.0) mEq/L Potassium (3.5-5.1) mmol/L POC Chloride 96 L (101-112) mEq/L Chloride (98-107) mmol/L Carbon Dioxide (21-32) mmol/L POC Total CO2 25 (24-31) mEq/l Anion Gap (3-11) POC Anion Gap 17.0 (16-25) mmol/L POC BUN 18 (7-18) mg/dl BUN (7-18) mg/dl Creatinine (0.6-1.2) mg/dl POC Creatinine 1.3 (0.6-1.3) mg/dl Est Cr Clr Drug Dosing ml/min Est GFR ( Amer) Est GFR (Non-Af Amer) BUN/Creatinine Ratio (10-20) Glucose (70-99) mg/dl POC Glucose (other) 140 H (70-99) mg/dl Lactate 1.4 (0.4-2.0) mmol/L Calcium (8.5-10.1) mg/dl POC Ioniz Calcium Raphael 1.14 (1.12-1.32) mmol/l Magnesium (1.8-2.4) mg/dl Total Bilirubin (0.2-1) mg/dl AST (15-37) U/L ALT (12-78) U/L Alkaline Phosphatase (45-117) U/L Troponin I (0-0.045) ng/ml Total Protein (6.4-8.2) gm/dl Albumin (3.4-5.0) gm/dl Globulin (2.5-4.0) gm/dl Albumin/Globulin Ratio (0.9-2) TSH (0.300-4.500) uIu/ml Urine Color Yellow Urine Appearance Clear (Clear) Urine pH 5.0 (4.5-7.5) Ur Specific [place] 1.024 (1.000-1.030) Urine Protein Negative (Negative) Urine Glucose (UA) Negative (Negative) Urine Ketones Negative (Negative) Urine Blood Negative (Negative) Urine Nitrite Negative (Negative) Urine Bilirubin Negative (Negative) Urine Urobilinogen Negative (Negative) Ur Leukocyte Esterase Negative (Negative) Imaging Data Radiologist's Impression: Radiology results as stated below per my review and the radiologist's interpretation: XR chest 1V portable CLINICAL HISTORY: 62 years-old Female presenting with weakness. TECHNIQUE: Portable upright AP view of the chest was obtained. COMPARISON: 02/02/2011 and CTA chest from 07/14/2018. FINDINGS: Right internal jugular Mediport terminates at the confluence of the right resident intern al jugular vein and right subclavian vein. Cardiomediastinal silhouette normal. Mildly low lung volumes with hypoventilatory changes. No focal opacity. Mild pulmonary vascular prominence. No pleural effusion or pneumothorax. Degenerative changes of the thoracic spine. Surgical drain may be in place in the left upper quadrant or other radiopaque foreign body. IMPRESSION: 1. Mild volume overload may be present. No other evidence of acute cardio pulmonary disease. Electronically signed by: Rico Faulkner M.D. 12/12/2018 12:32 PM ECG Data Attestation: I personally reviewed and interpreted this ECG as follows: Indication: other (dizziness, hypotension) Rate (beats per minute): 92 Rhythm: normal sinus Findings: no PVC and no ST elevation Blood Pressure Blood Pressure Findings: Low blood pressure MDM Narrative There is a significant leukocytosis at 19,000, this of course could be consistent with infection. Hemoglobin is low at 10.5. Platelet count slightly low at 110. No coagulopathy. The creatinine was slightly elevated, this is consistent with some dehydration. No worrisome liver enzyme elevation. The patient appeared to be in a euthyroid state. EKG shows a sinus rhythm, no acute ischemia. Cardiac enzyme testing x1 is not consistent with acute cardiac injury. Chest x-ray does not show pneumonia or CHF. Lactic acid level was not elevated making severe sepsis less likely. Blood cultures are pending. Urinalysis does not show evidence for infection. The patient presents with dizziness, weakness and hypotension. She is status post bilateral mastectomy. She presents from her surgeon's office. The patient received IV saline, she was given 1 L. She was given IV cefepime as antibiotic coverage. The patient is hypotensive, weak and is status post mastectomy. She is anemic, she has a marked leukocytosis. Further work-up for possible bacteremia is of course warranted. There is no obvious source for infection by exam, I believe the surgical incisions look to be healing without infection. I spoke to the patient, I talked with the oil field caser. The on-call hospitalist was consulted. Impression & Plan Hypotension, Anemia, Leukocytosis, Dizziness, Status post bilateral mastectomy Critical Care Time Critical Care Time: Yes Total Critical Care Time: 35 I have personally spent 35 minutes of critical care time in the direct management of this patient. This includes bedside care, interpretation of diagnostic studies, and testing, discussion with consultants, patient, and family members, and other required patient management activities. This 35 minutes is in excess of all separately billable procedures. Discharge Plan Visit Data *Final* Discharge Date/Time: 12/12/18 16:45 Chief Complaint: Dizziness ED Provider: Gustavo Nelson Discharge Problem: Hypotension, Anemia, Leukocytosis, Dizziness, Status post bilateral mastectomy Patient Disposition: Admitted As Inpatient Discharge Instructions Interventions: ED Discharge Assessment Last Done: 12/12/18 16:45 Discharge Problem: Hypotension Qualifiers: Hypotension type: unspecified hypotension type Qualified Code(s): I95.9 - Hypotension, unspecified Anemia Qualifiers: Anemia type: unspecified type Qualified Code(s): D64.9 - Anemia, unspecified Leukocytosis Qualifiers: Leukocytosis type: unspecified Qualified Code(s): D72.829 - Elevated white blood cell count, unspecified The scribe's documentation has been prepared under my direction and personally reviewed by me in its entirety. I confirm that the note above accurately reflects all work, treatment, procedures, and medical decision making performed by me.
[2018-12-12 13:00] LABS: Basophils # (auto) 0.03 K/uL (0-0.2); Basophils % (auto) 0.2 %; Eosinophils # (auto) 0.02 K/uL (0-0.5); Eosinophils % (auto) 0.1 %; Hematocrit (blood only) 32.4 % (37-47); Hemoglobin 10.5 g/dL (12.0-16.0); Immature Granulocytes # (auto) 0.06 K/uL (0.00-0.02); Immature Granulocytes % (auto) 0.3 %; Lymphocytes # (auto) 1.47 K/uL (1.2-3.4); Lymphocytes % (auto) 7.7 %; Mean Corpuscular Hgb Conc 32.4 g/dL (32-36); Mean Corpuscular Volume 88.5 fL (80-100); Mean Platelet Volume 11.5 fL (7.4-10.4); Monocytes # (auto) 1.17 K/uL (0.11-0.59); Monocytes % (auto) 6.1 %; Neutrophils # (auto) 16.36 K/uL (1.4-6.5); Neutrophils % (auto) 85.6 %; Platelet Count 110 K/uL (130-400); RDW Coefficient of Variation 14.8 % (11.5-14.5); RDW Standard Deviation 48.1 fL (36.4-46.3); Red Blood Count 3.66 M/uL (4.2-5.4); White Blood Count 19.11 K/uL (4.8-10.8)
[2018-12-12] MEDS ORDERED: CEFEPIME 2,000 MG/20 ML VIAL IV STA (13:06)
[2018-12-12 13:10] LABS: iSTAT Creatinine 1.3 mg/dl (0.6-1.3); iSTAT Hemoglobin 11.2 g/dl (12.0-16.0); iSTAT Ionized Calcium 1.14 mmol/l (1.12-1.32); iSTAT Potassium 3.5 mEq/L (3.3-5.0)
[2018-12-12 13:14] LABS: INR 1.1 (0.9-1.1); Prothrombin Time 11.5 Seconds (9.0-12.0)
[2018-12-12 13:16] LABS: Alanine Aminotransferase 16 U/L (12-78); Albumin Level 2.7 gm/dl (3.4-5.0); Aspartate Aminotransferase 12 U/L (15-37); Blood Urea Nitrogen 19 mg/dl (7-18); Calcium 8.7 mg/dl (8.5-10.1); Carbon Dioxide 29 mmol/L (21-32); Chloride 98 mmol/L (98-107); Creatinine Clr Calc Pharmacy 55.5 ml/min; Est GFR (African American) 54.8; Est GFR (Non-African American) 47.3; Glucose 139 mg/dl (70-99); Magnesium 2.1 mg/dl (1.8-2.4); Potassium 3.4 mmol/L (3.5-5.1); Sodium 134 mmol/L (136-145)
[2018-12-12] MEDS ORDERED: CEFEPIME 2,000 MG in SYRINGE 7.5 ML IV STA (13:19)
[2018-12-12 13:26] LABS: Albumin Globulin Ratio 0.7 (0.9-2); Alkaline Phosphatase 48 U/L (45-117); Bilirubin,Total 0.6 mg/dl (0.2-1); Globulin 3.9 gm/dl (2.5-4.0); Total Protein 6.6 gm/dl (6.4-8.2); Troponin I < 0.015 ng/ml (0-0.045)
[2018-12-12 14:06] LABS: Appearance Urine Clear (Clear); Bilirubin Urine Negative (Negative); Blood Urine Negative (Negative); Color Urine Yellow; Glucose Urine UA Negative (Negative); Ketones Urine Negative (Negative); Leukocyte Esterase Urine Negative (Negative); Nitrite Urine Negative (Negative); Protein Urine Negative (Negative); Specific Gravity Urine 1.024 (1.000-1.030); Urobilinogen Urine Negative (Negative)
--- NOTE | 2018-12-12 14:27 | History & Physical Report ---
Date of Service December 12, 2018 Assessment & Plan (1) Hypotension: (2) SIRS (systemic inflammatory response syndrome): (3) Status post bilateral mastectomy: Pt presented with hypotension with SBP in 90s down to SBPs in 60's while in general surgery office today. C/O dizziness with standing x 1 day. No syncope. No N/V/D, no urinary symptoms. No recorded fevers at home. +chills Dry cough with CXR with no infiltrate In ER afebrile, P:102, BP: 96/58, R:18, 96% on RA Meets SIRS criteria with P: up to 102, WBC: 19 Lactate 1.4. UA unremarkable Possible Infectious source: surgical mastectomy sites or port -Cefepime, 1L NSS in ER -unable to obtain blood culture from port as not able to withdraw blood from port -blood cultures pending -urine culture -MRSA swab -Cefepime, vancomycin -IVF -fall precautions -US breast/chest wall to r/o abscess/fluid collection -General surgery consult to evaluate mastectomy sites -Monitor CBC, BMP (4) Hypokalemia: K: 3.4 -Replace and monitor (5) Breast cancer: recurrent right breast cancer s/p chemo, last dose in 09/2018. Follows with Dr Mercedes. S/P R mastectomy and prophylactic left mastectomy on 12/01/[address] Earl -monitor drain output -continue arimediex (6) Anemia: (7) Thrombocytopenia: Hgb: 10.5, was 12.5 pre-op on 11/19/18 Plt: 110, was 107 pre-op on 11/19/18 -Monitor CBC (8) Hypertension: Current hypotension -Hold candesartan, HCTZ -Monitor BP (9) Hypothyroidism: TSH: 3.1 -Continue levothyroxine (10) CKD (chronic kidney disease), stage III: Cr: 1.2, baseline ~1.0 -Monitor renal functions -Avoid nephrotoxic agents when possible (11) Diabetes mellitus, type II: A1c: 6.5 on 10/22/18 Diet controlled -Monitor BSG -Novolog sliding scale per protocol (12) GERD (gastroesophageal reflux disease): -Continue PPI DVT Prophylaxis -SCDs with thrombocytopenia Full Code as per discussion with pt Follows with Dr Sarah for routine care Pt was seen and care coordinated with Dr Simeon. See addendum History of Present Illness Chief Complaint: Dizziness, hypotension Primary Care Provider: Jose Sarah MD Pt is 62 y/o F with PMH recurrent R breast CA s/p chemo with last dose in 09/2018, s/p bilateral mastectomy on 12/01/18, HTN, DM II, CKD III, hypothyroidism, GERD, h/o PE presented to ER from general surgeons office for dizziness and orthostatic hypotension. Pt reports yesterday started with dizziness with standing and ambulation. Denies syncope. States feels run down over past week. Was taking temperatures at home and reports was 98-99F. C/O chills intermittently. Pt states since mastectomy on 12/01/18 she has had dry cough. Seen by PCP 2 days ago and had negative CXR and was treated with Delsym and Tessalon Perles. Pt states a little less cough. Denies CP or SOB. Pt has NANCY drains still in place and reports empties three times a day. States left sided drain with less drainage than right side. She states a couple of days ago was having pain at insertion site of right sided NANCY drain which prompted surgery follow up visit today. Today in clinic she was found to have SBP in 90's which dropped to 60's with standing. She denies any noted erythema or discharge from surgical sites. Decreased appetite. Denies diaphoresis, N/V/D/C, SCHREIBER, vision changes, neck pain, orthopnea, palpitations, sore throat, choking, otalgia, rhinorrhea, abdominal pain, paresthesias, extremity edema, rashes, urinary symptoms. Allergies Allergy/AdvReac Type Severity Reaction Status Date / Time adhesive Allergy Unknown ITCHING Verified 12/12/18 13:27 ketoconazole Allergy Unknown UNKNOWN Verified 12/12/18 13:27 pantoprazole Allergy Unknown UNKNOWN Verified 12/12/18 13:27 REACTION, PT. CAN TAKE PRILOSEC Penicillins Allergy Unknown HIVES Verified 12/12/18 13:27 losartan AdvReac Unknown HEARTBURN Verified 12/12/18 13:27 levofloxacin [From Levaquin] AdvReac Migraine Unverified 12/12/18 13:27 Home Medications Home Medications Medication Instructions Recorded Confirmed Type Multiple Vitamin, Womens 1 tab PO DAILY 07/14/18 12/12/18 History allopurinol 300 mg PO QAM 07/14/18 12/12/18 History biotin 1,000 mcg PO DAILY 07/14/18 12/12/18 History candesartan [Atacand] 16 mg PO QAM 07/14/18 12/12/18 History cholecalciferol (vitamin D3) 1,000 unit PO DAILY 07/14/18 12/12/18 History [Vitamin D3] hydrochlorothiazide 12.5 mg PO QAM 07/14/18 12/12/18 History levothyroxine 37.5 mcg PO HS 07/14/18 12/12/18 History loratadine 10 mg PO DAILY PRN 07/14/18 12/12/18 History omeprazole 40 mg PO QAM 07/14/18 12/12/18 History triamcinolone acetonide 1 applic TOPICAL BID PRN 07/14/18 12/12/18 History anastrozole 1 mg PO QAM 11/24/18 12/12/18 History benzonatate [Tessalon Perles] 100 mg PO TID PRN 12/12/18 12/12/18 History ondansetron HCl [Zofran] 8 mg PO TID PRN 12/12/18 12/12/18 History prochlorperazine maleate 10 mg PO Q6H PRN 12/12/18 12/12/18 History [Compazine] Past Med/Surg History Medical History Pulmonary embolism (Resolved) 2013. UNKNOWN REASON. Osteoarthritis (Chronic) MALToma (Chronic) HX Port-A-Cath in place (Chronic) Morbid obesity (Chronic) Hypothyroidism (Chronic) GERD (gastroesophageal reflux disease) (Chronic) CKD (chronic kidney disease), stage III (Chronic) Diabetes mellitus, type II (Chronic) Intracranial meningioma (Resolved 01/05/13) s/p resection 2010. Breast cancer (Chronic) RIGHT BREAST CANCER. DX'D NOVEMBER 2017. CHEMOTHERAPY (LAST ) Hypertension (Chronic) Surgical History Hx of lumpectomy (Chronic) X2 RIGHT BREAST WITH LYMPH NODES REMOVED History of dilatation and curettage (Chronic) History of hysterectomy (Chronic) VAGINAL History of bilateral tubal ligation (Chronic) History of section (Chronic) X1 History of arthroscopy (Chronic) LEFT H/O arthroscopy of shoulder (Chronic) BILATERAL History of repair of rotator cuff (Chronic) RIGHT History of carpal tunnel release (Chronic) BILATERAL History of colonoscopy (Chronic) History of esophagogastroduodenoscopy (EGD) (Chronic) History of cholecystectomy (Chronic) History of craniotomy (Chronic) 2010 [facility] ([place]), "Smooth IV induction; intubation with MAC 3 x 1 attempt. Grade II view." S/P bilateral mastectomy 11/30/18 Family History Mother Family history of diabetes mellitus Grandmother (Maternal) Family history of diabetes mellitus Aunt Family history of diabetes mellitus Social History Preferred Language: [place] Leonean Communication Ability: Effective Clinic Md Associate Required: No Beliefs That Will Affect Care: None marital status: Current Living Situation: Spouse Feels Safe at Home: Yes Smoking Status: Never smoker Second Hand Exposure: No ; Hx Alcohol Use: No Hx Substance Use: No Review of Systems Review of Systems: All systems reviewed & are unremarkable except as noted in HPI & below Physical Exam Physical Exam: General: no acute distress, chronic ill appearing, obese Head: normocephalic, atraumatic Eyes: PERRL, EOM's intact, conjunctiva non-injected, anicteric ENT: normal inspection external ears, nose, mucous membranes dry Neck: supple, trachea midline Lungs: clear, no respiratory distress, no wheezing/rhonchi/rales CV: RRR, no murmur, no pretibial edema Chest Wall: +incisional surgical site to right anterior and left anterior chest with steri-strips in place, no significant erythema or warmth around incision sites, no discharge from surgical sites, some ecchymosis to chest wall; right sided NANCY drain intact with bloody drainage, left sided NANCY drain intact with serous drainage Abd: normal BS, soft, non-tender Ext: no cyanosis, no calf tenderness Neuro: A&O x 3, no focal deficits noted, normal affect Skin: warm, dry Results & Data Vital Signs (Past 12 Hours) Vital Signs Temp Pulse Pulse Resp BP BP Pulse Ox 12/12/18 13:56 97 H 19 125/65 93 12/12/18 13:06 93 H 16 92/68 L 12/12/18 12:29 96 12/12/18 12:17 97 H 17 95/63 L 92 12/12/18 11:53 36.8 C 102 H 20 96/58 L 96 Laboratory Results Short CBC 12/12/18 Range/Units 12:30 WBC 19.11 H (4.8-10.8) K/uL Hgb 10.5 L (12.0-16.0) g/dL Hct 32.4 L (37-47) % Plt Count 110 L (130-400) K/uL BMP 12/12/18 12:30 Sodium 134 L Potassium 3.4 L Chloride 98 Carbon Dioxide 29 BUN 19 H Creatinine 1.23 H Glucose 139 H Calcium 8.7 Cardiac Enzymes 12/12/18 Range/Units 12:30 Troponin I < 0.015 (0-0.045) ng/ml Liver Function 12/12/18 Range/Units 12:30 Total Bilirubin 0.6 (0.2-1) mg/dl AST 12 L (15-37) U/L ALT 16 (12-78) U/L Alkaline Phosphatase 48 (45-117) U/L Albumin 2.7 L (3.4-5.0) gm/dl Urine 12/12/18 Range/Units 13:45 Urine Color Yellow Urine Appearance Clear (Clear) Urine pH 5.0 (4.5-7.5) Ur Specific [place] 1.024 (1.000-1.030) Urine Protein Negative (Negative) Urine Glucose (UA) Negative (Negative) Diagnostic Findings CXR: IMPRESSION: 1. Mild volume overload may be present. No other evidence of acute cardio pulmonary disease. ECG Rate (beats per minute): 92 Rhythm: normal sinus Findings: + T-wave inversion (Septal) Code Status & VTE Plan VTE Prophylaxis Plan VTE Prophylaxis will be ordered: Yes Supervising Physician Co-Signing Physician Notes Attending addendum: Patient was seen and examined in the emergency room in presence of her She was sent in from outpatient surgery clinic with dizziness and hypotension and possible sepsis He complains of weakness and tiredness in the emergency room Denies any fever but complains to have chills and feeling cold at home Denies any significant pain and/or redness involving the recent surgical site On examination She is obese lying in bed comfortably Hemodynamically stable with normal temperature and pulse around 95/min Chest-clear to auscultate bilaterally with decreased breath sounds at the bases Examination of the anterior chest wall-status post recent surgery involving bilateral mastectomy, no significant redness or tenderness identified, pink drain is has been clear from the right side. Has a port in the right upper anterior chest wall Heart-S1-S2 regular Abdomen-benign Extremities-trace edema bilaterally Admission labs and imaging studies noted Notable findings increased white count of 19,000 and continued significant drainage from the surgical site especially in the right Agree with assessment and plan as outlined above by ALLAN Gary Dr (1) Anemia Anemia type: unspecified type Qualified Code(s): D64.9 - Anemia, unspecified
[2018-12-12] MEDS ORDERED: CARBOHYDRATES FOR HYPOGLYCEMIA PO PRN (17:18)
[2018-12-12] MEDS ORDERED: DEXTROSE 50% 50 ML SYRINGE IV PRN (17:18)
[2018-12-12] MEDS ORDERED: CONSULT PHARMACY STA (17:18)
[2018-12-12] MEDS ORDERED: GLUCOSE 40% GEL 15 GM TUBE PO PRN (17:18)
[2018-12-12] MEDS ORDERED: ONDANSETRON INJ 2 MG/ML 2 ML VIAL IV PRN (17:18)
[2018-12-12] MEDS ORDERED: GLUCAGON FOR INJ 1 MG VIAL SQ PRN (17:18)
[2018-12-12] MEDS ORDERED: GLUCOSE 10 TABS/TUBE PO PRN (17:18)
[2018-12-12] MEDS ORDERED: CEFEPIME CONSULT ACTIVE PRN (17:40)
[2018-12-12] MEDS ORDERED: VANCOMYCIN CONSULT ACTIVE PRN (17:40)
[2018-12-12] MEDS ORDERED: VANCOMYCIN HCL 2,500 MG in SODIUM CHLORIDE 0.9% 500 ML IV ONE (17:45)
--- NOTE | 2018-12-12 19:10 | Pharmacy Report ---
Pharmacy Abx Dose Short Note - Date of Service December 12, 2018 - Assessment & Plan Assessment 62 year old F ordered empiric vancomycin and cefepime for SIRS/possible sepsis (secondary to infected port/post-op infection?) Patient has a history of breast cancer with a bilateral mastectomy on 12/01/18. In ED, patient was hypotensive and tachycardic (HRs in 90s) with a WBC of 19. Blood cultures x 2: pending Chest x-ray negative for infiltrate Plan Vancomycin IV * Estimated PK Parameters: Vd 0.6 L/kg, Dewey 0.05 hr-1, t1/2 14 hr * Current SCr appears to be above baseline at 1.23 (0.99 on 07/14/18) * Follow-up BMP tomorrow to reassess renal function * Loading dose: 2500 mg (24 mg/kg) * Maintenance dose: 1500 mg IV (14 mg/kg) every 16 hours * Goal trough level for possible sepsis : 15 to 20 mcg/mL * Will order vanco trough if vancomycin is to continue past 48 hours Pharmacy will continue to follow and will adjust dose/frequency as necessary. Thank you.
[2018-12-12] MEDS: INSULIN ASPART 100 UNITS/ML 3 ML PEN SC SCH ×2 (19:15→20:29)
--- NOTE | 2018-12-12 20:26 | Ultrasound Report ---
Study: Bilateral breast ultrasound HISTORY: Post mastectomy abscess COMPARISON: None. FINDINGS: Slightly complex fluid pocket immediately deep to the surgical incision. This measures 4 x 4 x 2 cm. Potentially represents a postprocedural seroma or hematoma. Abscess is possible. Left chest demonstrates a smaller complex fluid pocket immediately deep to the surgical incision. Thi s measures 2 x 1 cm IMPRESSION: 1. Slightly complex fluid pockets immediately deep to the right and to a lesser extent left mastectom y incision's. 2. Given the patient's recent surgery, diagnostic considerations include hematoma versus seroma. 3. Abscess is considered less likely but is not entirely excluded. 4. Mild generalized soft tissue edematous change of the chest wall bilaterally presumably on a postop erative basis. Electronically signed by: Caden Sandhu M.D. 12/12/2018 8:25 PM
[2018-12-12] MEDS: LEVOTHYROXINE SODIUM 75 MCG TABLET PO SCH (20:30)
[2018-12-12] MEDS: CEFEPIME 2,000 MG in SYRINGE 7.5 ML IV SCH (21:29)
[2018-12-12] MEDS: NSS + 20MEQ KCL 20 MEQ/1,000 ML BAG IV SCH (22:23)
[2018-12-12] MEDS: ACETAMINOPHEN 325 MG TAB PO PRN (23:29)
[2018-12-13] MEDS ORDERED: CEFEPIME 2,000 MG in SYRINGE 7.5 ML IV SCH (01:00)
[2018-12-13] MEDS: NSS + 20MEQ KCL 20 MEQ/1,000 ML BAG IV SCH (05:38)
[2018-12-13] MEDS: CEFEPIME 2,000 MG in SYRINGE 7.5 ML IV SCH ×3 (05:38→22:28)
[2018-12-13 07:01] LABS: Hematocrit (blood only) 27.7 % (37-47); Hemoglobin 9.1 g/dL (12.0-16.0); Mean Corpuscular Hgb Conc 32.9 g/dL (32-36); Mean Corpuscular Volume 88.8 fL (80-100); RDW Coefficient of Variation 14.8 % (11.5-14.5); RDW Standard Deviation 48.3 fL (36.4-46.3); Red Blood Count 3.12 M/uL (4.2-5.4); White Blood Count 11.98 K/uL (4.8-10.8)
[2018-12-13 07:25] LABS: BUN Creatinine Ratio 19.1 (10-20); Creatinine Clr Calc Pharmacy 69.4 ml/min; Est GFR (African American) 71.3; Est GFR (Non-African American) 61.5; Potassium 3.7 mmol/L (3.5-5.1)
[2018-12-13] MEDS: CHOLECALCIFEROL 1,000 UNITS TAB PO SCH (07:39)
[2018-12-13] MEDS: ANASTROZOLE 1 MG TAB PO SCH (07:40)
[2018-12-13] MEDS: ALLOPURINOL 300 MG TAB PO SCH (07:40)
[2018-12-13] MEDS: PANTOprazole 40 MG TAB PO SCH (07:40)
[2018-12-13] MEDS: CEROVITE ADV FORMULA TAB PO SCH (07:40)
[2018-12-13 07:58] LABS: Basophils # (auto) 0.02 K/uL (0-0.2); Basophils % (auto) 0.2 %; Eosinophils # (auto) 0.38 K/uL (0-0.5); Eosinophils % (auto) 3.2 %; Immature Granulocytes # (auto) 0.02 K/uL (0.00-0.02); Immature Granulocytes % (auto) 0.2 %; Lymphocytes # (auto) 1.15 K/uL (1.2-3.4); Lymphocytes % (auto) 9.6 %; Mean Platelet Volume 10.4 fL (7.4-10.4); Monocytes # (auto) 0.74 K/uL (0.11-0.59); Monocytes % (auto) 6.2 %; Neutrophils # (auto) 9.67 K/uL (1.4-6.5); Neutrophils % (auto) 80.6 %; Platelet Count 85 K/uL (130-400); Platelet Estimate Decreased (Normal)
[2018-12-13] MEDS: INSULIN ASPART 100 UNITS/ML 3 ML PEN SC SCH ×4 (08:41→20:58)
--- NOTE | 2018-12-13 09:45 | Surgery Progress Note ---
Date of Service December 13, 2018 Assessment & Plan (1) Breast cancer: clinically doing better blood cultures pending continue antibiotics. ? source. does not appear to be surgical site. if blood cx's + may need t/c removing her a-port Subjective feeling much better today. lightheadedness resolved. did have an episode of sweats in middle of night. resolved now. Physical Exam Physical Exam: alert. nad NANCY's : left side scant/serous. right side serosanguinous. non-purulent. Results & Data Vital Signs (Past 12 Hours) Vital Signs Temp Pulse Pulse Resp BP Pulse Ox 12/13/18 07:44 93 H 102/65 12/13/18 07:28 36.9 C 85 18 87/55 L 93 12/13/18 04:00 36.7 C 80 20 106/71 95 12/13/18 00:31 99 H 12/12/18 23:00 37.6 C H 98 H 20 91/56 L 94 PG Care Time/CCT Total # of Minutes Spent Total Time Spent with Patient: Total time spent is greater than 50% in coordination of care (as documented) at patient's floor/unit and/or counseling patient:
[2018-12-13] MEDS ORDERED: VANCOMYCIN HCL 1,500 MG in SODIUM CHLORIDE 0.9% 500 ML IV SCH (11:00)
[2018-12-13] MEDS ORDERED: SODIUM CHLORIDE 0.9% 1000ML 1,000 ML IV ONE (15:12)
--- NOTE | 2018-12-13 15:24 | Hospitalist Progress Note ---
Date of Service December 13, 2018 Assessment & Plan (1) Hypotension: (2) SIRS (systemic inflammatory response syndrome): (3) Status post bilateral mastectomy: SIRS Possible Sepsis Hypotension Possible sources of Infection:Surgical site, Port, NANCY drain --CXR:Mild volume overload may be present. No other evidence of acute cardio pulmonary disease. --Breast USD:Slightly complex fluid pockets immediately deep to the right and to a lesser extent left mastectomy incision's. Given the patient's recent surgery, diagnostic considerations include hematoma versus seroma. Abscess is considered less likely but is not entirely excluded. Mild generalized soft tissue edematous change of the chest wall bilaterally presumably on a postoperative basis. Blood Cx:No growth to date Urine Cx: No growth to date Wound Cx: pending --Continue vancomycin, cefepime Day #2 --Appreciate surgery input Continue IV fluids Leukocytosis improving (4) Hypokalemia: Resolved monitor (5) Breast cancer: recurrent right breast cancer s/p chemo, last dose in 09/2018. Follows with Dr Mercedes. S/P R mastectomy and prophylactic left mastectomy on 12/01/[address] Earl Continue wound care continue Anastrozole (6) Anemia: (7) Thrombocytopenia: Chronic Monitor CBC No bleeding issues (8) Hypertension: Currently hypotension Hold candesartan, HCTZ Monitor (9) Hypothyroidism: TSH: 3.1 Continue levothyroxine (10) CKD (chronic kidney disease), stage III: Cr baseline ~1.0 Monitor renal function Avoid nephrotoxic agents when possible (11) Diabetes mellitus, type II: A1c: 6.5 on 10/22/18 Diet controlled Continue ISS Monitor BGs (12) GERD (gastroesophageal reflux disease): Continue PPI DVT Px: SCDs Re: thrombocytopenia Code Status Full Code Subjective Patient seen and examined at bedside Dizziness resolved Blood pressure still relatively low Noted some discharge from NANCY drain Denies any chest pain, shortness of breath, nausea, abdominal pain Family at bedside Review of Systems Review of Systems: All systems reviewed & are unremarkable except as noted in HPI & below Physical Exam Physical Exam: Physical Exam: Vitals signs as noted above General Appearance:Obese, no apparent distress Head: normocephalic, Atraumatic Eyes: normal inspection, EOMI Neck: supple, Trachea midline Respiratory/Chest: Normal breath sounds, CTA, Surgical site in dress, +NANCY drain Cardiovascular: S1, S2, No murmur Abdomen/GI:Soft, Non tender, Bowel sounds present Extremities/Musculoskelatal:normal inspection, no edema Neurologic/Psych:AAOX3, grossly no focal neurological deficits Skin: normal color, warm Results & Data Vital Signs (Past 12 Hours) Vital Signs Temp Pulse Resp BP Pulse Ox 12/13/18 11:30 36.9 C 96 H 18 93/61 L 95 12/13/18 07:44 93 H 102/65 12/13/18 07:28 36.9 C 85 18 87/55 L 93 12/13/18 04:00 36.7 C 80 20 106/71 95 Laboratory Results Short CBC 12/13/18 Range/Units 06:34 WBC 11.98 H (4.8-10.8) K/uL Hgb 9.1 L (12.0-16.0) g/dL Hct 27.7 L (37-47) % Plt Count 85 L (130-400) K/uL BMP 12/13/18 06:34 Sodium 138 Potassium 3.7 Chloride 106 Carbon Dioxide 27 BUN 19 H Creatinine 0.99 Glucose 111 H Calcium 8.0 L (1) Anemia Anemia type: unspecified type Qualified Code(s): D64.9 - Anemia, unspecified
--- NOTE | 2018-12-13 15:35 | Pharmacy Report ---
Pharmacy Abx Dose Short Note - Date of Service December 13, 2018 - Assessment & Plan Assessment 62 year old F receiving Vancomycin for treatment of ? infected surgical site/infected port Day # 2 of antimicrobial therapy. Plan Vancomycin * Patient's kidney function returned to baseline. * Changed frequency from q16h to q14h. * Since indication is still empiric, won't order any levels at this point. * Will check with provider 12/14/18 to see if antibiotics should be continued. Pharmacy will continue to follow and will adjust dose/frequency as necessary. Thank you.
[2018-12-13] MEDS: LEVOTHYROXINE SODIUM 75 MCG TABLET PO SCH (20:54)
[2018-12-14] MEDS: VANCOMYCIN HCL 1,500 MG in SODIUM CHLORIDE 0.9% 500 ML IV SCH ×2 (00:46→17:02)
[2018-12-14] MEDS ORDERED: VANCOMYCIN HCL 1,500 MG in SODIUM CHLORIDE 0.9% 500 ML IV SCH (01:00)
[2018-12-14] MEDS: CEFEPIME 2,000 MG in SYRINGE 7.5 ML IV SCH ×3 (05:40→21:10)
[2018-12-14 06:38] LABS: Hematocrit (blood only) 26.7 % (37-47); Hemoglobin 8.8 g/dL (12.0-16.0); Mean Corpuscular Volume 87.8 fL (80-100); RDW Coefficient of Variation 14.7 % (11.5-14.5); RDW Standard Deviation 47.7 fL (36.4-46.3); Red Blood Count 3.04 M/uL (4.2-5.4); White Blood Count 9.47 K/uL (4.8-10.8)
[2018-12-14 06:41] LABS: Mean Platelet Volume 11.5 fL (7.4-10.4); Platelet Count 96 K/uL (130-400)
[2018-12-14 07:07] LABS: BUN Creatinine Ratio 16.9 (10-20); Creatinine Clr Calc Pharmacy 77.9 ml/min; Est GFR (African American) 81.1; Potassium 4.1 mmol/L (3.5-5.1)
[2018-12-14] MEDS: HEPARIN 100 UNIT/ML 5ML FLUSH FLUSH PRN ×4 (07:19→21:10)
[2018-12-14] MEDS: PANTOprazole 40 MG TAB PO SCH (07:50)
[2018-12-14] MEDS: CEROVITE ADV FORMULA TAB PO SCH (07:50)
[2018-12-14] MEDS: ANASTROZOLE 1 MG TAB PO SCH (07:51)
[2018-12-14] MEDS: CHOLECALCIFEROL 1,000 UNITS TAB PO SCH (07:51)
[2018-12-14] MEDS: ALLOPURINOL 300 MG TAB PO SCH (07:51)
[2018-12-14] MEDS: BENZONATATE 100 MG CAPSULE PO PRN ×2 (07:51→18:21)
[2018-12-14] MEDS: INSULIN ASPART 100 UNITS/ML 3 ML PEN SC SCH ×4 (07:54→21:10)
--- NOTE | 2018-12-14 10:17 | Surgery Progress Note ---
Date of Service December 14, 2018 Assessment & Plan (1) Status post bilateral mastectomy: clinically doing well blood cx's negative left NANCY cx's + for wbc's and gram + cocci rec d/c with oral antibiotics covering GPC keep NANCY's in has appointment with Dr. Earl this week. ok for d/c from surgical standpoint. Subjective pt continues to feel ok. began having more purulent drainage from her left NANCY drain yesterday after stipping. afebrile. Physical Exam Physical Exam: right NANCY serous. left NANCY also serous now ( different than yesterday per her and her RN) both incisions look great. no erythema or drainage. Results & Data Vital Signs (Past 12 Hours) Vital Signs Temp Pulse Pulse Resp BP Pulse Ox 12/14/18 07:12 36.8 C 86 18 109/73 93 12/13/18 22:27 37.0 C 93 H 18 104/63 96 12/13/18 22:20 87 PG Care Time/CCT Total # of Minutes Spent Total Time Spent with Patient: Total time spent is greater than 50% in coordi nation of care (as documented) at patient's floor/unit and/or counseling patient:
--- NOTE | 2018-12-14 14:22 | Hospitalist Progress Note ---
Date of Service December 14, 2018 Assessment & Plan (1) Hypotension: (2) SIRS (systemic inflammatory response syndrome): (3) Status post bilateral mastectomy: Severe Sepsis Possible sources of Infection:NANCY drain --CXR:Mild volume overload may be present. No other evidence of acute cardio pulmonary disease. --Breast USD:Slightly complex fluid pockets immediately deep to the right and to a lesser extent left mastectomy incision's. Given the patient's recent surgery, diagnostic considerations include hematoma versus seroma. Abscess is considered less likely but is not entirely excluded. Mild generalized soft tissue edematous change of the chest wall bilaterally presumably on a postoperative basis. Blood Cx:No growth to date Urine Cx: No growth to date Wound Cx: Preliminary-staph aureus --Continue vancomycin, cefepime Day #3 --Appreciate surgery input Received IV fluids Clinically improving (4) Hypokalemia: Resolved monitor (5) Breast cancer: recurrent right breast cancer s/p chemo, last dose in 09/2018. Follows with Dr Mercedes. S/P R mastectomy and prophylactic left mastectomy on 12/01/[address] Earl Continue wound care continue Anastrozole (6) Anemia: (7) Thrombocytopenia: Chronic Monitor CBC No bleeding issues (8) Hypertension: Currently hypotension Hold candesartan, HCTZ Monitor (9) Hypothyroidism: TSH: 3.1 Continue levothyroxine (10) CKD (chronic kidney disease), stage III: Cr baseline ~1.0 Monitor renal function Avoid nephrotoxic agents when possible (11) Diabetes mellitus, type II: A1c: 6.5 on 10/22/18 Diet controlled Continue ISS Monitor BGs (12) GERD (gastroesophageal reflux disease): Continue PPI DVT Px: SCDs Re: thrombocytopenia Code Status Full Code Subjective Patient seen and examined at bedside Doing better today Eager to get discharged Offers no complaints Denies any chest pain, shortness of breath, nausea, abdominal pain Wound cultures pending Review of Systems Review of Systems: All systems reviewed & are unremarkable except as noted in HPI & below Physical Exam Physical Exam: Physical Exam: Vitals signs as noted above General Appearance:Obese, no apparent distress Head: normocephalic, Atraumatic Eyes: normal inspection, EOMI Neck: supple, Trachea midline Respiratory/Chest: Normal breath sounds, CTA, Surgical site in dress, +NANCY drain Cardiovascular: S1, S2, No murmur Abdomen/GI:Soft, Non tender, Bowel sounds present Extremities/Musculoskelatal:normal inspection, no edema Neurologic/Psych:AAOX3, grossly no focal neurological deficits Skin: normal color, warm Results & Data Vital Signs (Past 12 Hours) Vital Signs Temp Pulse Resp BP Pulse Ox 12/14/18 12:00 36.8 C 88 18 97/61 L 98 12/14/18 07:12 36.8 C 86 18 109/73 93 Laboratory Results Short CBC 12/14/18 Range/Units 06:18 WBC 9.47 (4.8-10.8) K/uL Hgb 8.8 L (12.0-16.0) g/dL Hct 26.7 L (37-47) % Plt Count 96 L (130-400) K/uL BMP 12/14/18 06:18 Sodium 140 Potassium 4.1 Chloride 109 H Carbon Dioxide 25 BUN 15 Creatinine 0.89 Glucose 123 H Calcium 8.0 L (1) Anemia Anemia type: unspecified type Qualified Code(s): D64.9 - Anemia, unspecified
[2018-12-14] MEDS: ACETAMINOPHEN 325 MG TAB PO PRN (19:51)
[2018-12-14] MEDS: LEVOTHYROXINE SODIUM 75 MCG TABLET PO SCH (20:11)
[2018-12-15] MEDS ORDERED: VANCOMYCIN TROUGH ONE (04:30)
[2018-12-15 04:58] LABS: Hematocrit (blood only) 25.7 % (37-47); Hemoglobin 8.4 g/dL (12.0-16.0); Mean Corpuscular Hgb Conc 32.7 g/dL (32-36); Mean Platelet Volume 11.4 fL (7.4-10.4); Platelet Count 103 K/uL (130-400); RDW Coefficient of Variation 14.4 % (11.5-14.5); RDW Standard Deviation 47.1 fL (36.4-46.3); Red Blood Count 2.92 M/uL (4.2-5.4); White Blood Count 5.89 K/uL (4.8-10.8)
[2018-12-15] MEDS: VANCOMYCIN HCL 1,500 MG in SODIUM CHLORIDE 0.9% 500 ML IV SCH (05:37)
[2018-12-15] MEDS: CEFEPIME 2,000 MG in SYRINGE 7.5 ML IV SCH (06:13)
[2018-12-15] MEDS: CEROVITE ADV FORMULA TAB PO SCH (08:13)
[2018-12-15] MEDS: ANASTROZOLE 1 MG TAB PO SCH (08:13)
[2018-12-15] MEDS: PANTOprazole 40 MG TAB PO SCH (08:13)
[2018-12-15] MEDS: CHOLECALCIFEROL 1,000 UNITS TAB PO SCH (08:13)
[2018-12-15] MEDS: HEPARIN 100 UNIT/ML 5ML FLUSH FLUSH PRN (08:13)
[2018-12-15] MEDS: ALLOPURINOL 300 MG TAB PO SCH (08:13)
[2018-12-15] MEDS: INSULIN ASPART 100 UNITS/ML 3 ML PEN SC SCH ×2 (08:14→08:20)
[2018-12-15] MEDS: BENZONATATE 100 MG CAPSULE PO PRN (08:17)
[2018-12-15] MEDS ORDERED: DOXYCYCLINE HYCLATE 100 MG CAP PO SCH (09:00)
--- NOTE | 2018-12-15 10:37 | Hospitalist Progress Note ---
Date of Service December 15, 2018 Assessment & Plan (1) Hypotension: (2) SIRS (systemic inflammatory response syndrome): (3) Status post bilateral mastectomy: Severe Sepsis Possible sources of Infection:NANCY drain --CXR:Mild volume overload may be present. No other evidence of acute cardio pulmonary disease. --Breast USD:Slightly complex fluid pockets immediately deep to the right and to a lesser extent left mastectomy incision's. Given the patient's recent surgery, diagnostic considerations include hematoma versus seroma. Abscess is considered less likely but is not entirely excluded. Mild generalized soft tissue edematous change of the chest wall bilaterally presumably on a postoperative basis. Blood Cx:No growth to date Urine Cx: No growth to date Wound Cx: Pansensitive Staph aureus Continue vancomycin, cefepime Day #4>>Transition to PO Abx Appreciate surgery input Received IV fluids Clinically improved (4) Hypokalemia: Resolved monitor (5) Breast cancer: recurrent right breast cancer s/p chemo, last dose in 09/2018. Follows with Dr Mercedes. S/P R mastectomy and prophylactic left mastectomy on 12/01/[address] Earl Continue wound care continue Anastrozole (6) Anemia: (7) Thrombocytopenia: Chronic Monitor CBC No bleeding issues (8) Hypertension: Currently hypotension Hold candesartan, HCTZ Monitor (9) Hypothyroidism: TSH: 3.1 Continue levothyroxine (10) CKD (chronic kidney disease), stage III: Cr baseline ~1.0 Monitor renal function Avoid nephrotoxic agents when possible (11) Diabetes mellitus, type II: A1c: 6.5 on 10/22/18 Diet controlled Continue ISS Monitor BGs (12) GERD (gastroesophageal reflux disease): Continue PPI DVT Px: SCDs Re: thrombocytopenia Code Status Full Code Disposition: Plan to discharge home when stable Subjective Patient seen and examined at bedside No new complaints Denies any chest pain, shortness of breath, nausea, abdominal pain Family at bedside Eager to get discharged Review of Systems Review of Systems: All systems reviewed & are unremarkable except as noted in HPI & below Physical Exam Physical Exam: Physical Exam: Vitals signs as noted above General Appearance:Obese, no apparent distress Head: normocephalic, Atraumatic Eyes: normal inspection, EOMI Neck: supple, Trachea midline Respiratory/Chest: Normal breath sounds, CTA, Surgical site in dress, +NANCY drain Cardiovascular: S1, S2, No murmur Abdomen/GI:Soft, Non tender, Bowel sounds present Extremities/Musculoskelatal:normal inspection, no edema Neurologic/Psych:AAOX3, grossly no focal neurological deficits Skin: normal color, warm Results & Data Vital Signs (Past 12 Hours) Vital Signs Temp Pulse Pulse Resp BP Pulse Ox 12/15/18 09:00 84 12/15/18 07:08 36.6 C 84 19 126/79 98 12/15/18 04:00 36.7 C 81 18 112/71 96 12/15/18 00:34 83 12/14/18 23:20 36.6 C 83 17 110/69 97 Laboratory Results Short CBC 12/15/18 Range/Units 04:32 WBC 5.89 (4.8-10.8) K/uL Hgb 8.4 L (12.0-16.0) g/dL Hct 25.7 L (37-47) % Plt Count 103 L (130-400) K/uL (1) Anemia Anemia type: unspecified type Qualified Code(s): D64.9 - Anemia, unspecified
--- NOTE | 2018-12-15 10:42 | Discharge Summary ---
Date of Service December 15, 2018 Admission HPI Per Admitting Provider Pt is 62 y/o F with PMH recurrent R breast CA s/p chemo with last dose in 09/2018, s/p bilateral mastectomy on 12/01/18, HTN, DM II, CKD III, hypothyroidism, GERD, h/o PE presented to ER from general surgeons office for dizziness and orthostatic hypotension. Pt reports yesterday started with dizziness with standing and ambulation. Denies syncope. States feels run down over past week. Was taking temperatures at home and reports was 98-99F. C/O chills intermittently. Pt states since mastectomy on 12/01/18 she has had dry cough. Seen by PCP 2 days ago and had negative CXR and was treated with Delsym and Tessalon Perles. Pt states a little less cough. Denies CP or SOB. Pt has NANCY drains still in place and reports empties three times a day. States left sided drain with less drainage than right side. She states a couple of days ago was having pain at insertion site of right sided NANCY drain which prompted surgery follow up visit today. Today in clinic she was found to have SBP in 90's which dropped to 60's with standing. She denies any noted erythema or discharge from surgical sites. Decreased appetite. Denies diaphoresis, N/V/D/C, SCHREIBER, vision changes, neck pain, orthopnea, palpitations, sore throat, choking, otalgia, rhinorrhea, abdominal pain, paresthesias, extremity edema, rashes, urinary symptoms. Admission Exam Per Admitting Provider General: no acute distress, chronic ill appearing, obese Head: normocephalic, atraumatic Eyes: PERRL, EOM's intact, conjunctiva non-injected, anicteric ENT: normal inspection external ears, nose, mucous membranes dry Neck: supple, trachea midline Lungs: clear, no respiratory distress, no wheezing/rhonchi/rales CV: RRR, no murmur, no pretibial edema Chest Wall: +incisional surgical site to right anterior and left anterior chest with steri-strips in place, no significant erythema or warmth around incision sites, no discharge from surgical sites, some ecchymosis to chest wall; right sided NANCY drain intact with bloody drainage, left sided NANCY drain intact with serous drainage Abd: normal BS, soft, non-tender Ext: no cyanosis, no calf tenderness Neuro: A&O x 3, no focal deficits noted, normal affect Skin: warm, dry Principal Diagnosis Discharge Information Discharge Diagnosis Sepsis NANCY drain infection Discharge Goals Decrease discomfort,Improve disease control, Improve function Discharge Activity Limitations Resume your previous activity Discharge Data Allergies Allergy/AdvReac Type Severity Reaction Status Date / Time adhesive Allergy Unknown ITCHING Verified 12/12/18 13:27 ketoconazole Allergy Unknown UNKNOWN Verified 12/12/18 13:27 pantoprazole Allergy Unknown UNKNOWN Verified 12/12/18 13:27 REACTION, PT. CAN TAKE PRILOSEC Penicillins Allergy Unknown HIVES Verified 12/12/18 13:27 losartan AdvReac Unknown HEARTBURN Verified 12/12/18 13:27 levofloxacin [From Levaquin] AdvReac Migraine Unverified 12/12/18 13:27 Consultations 12/12/18 13:19 ED Decision to Admit Stat 12/12/18 17:18 Consult Case Management - Discharge Planning Routine Consult General Surgery Routine Procedures Performed CXR:Mild volume overload may be present. No other evidence of acute cardio pulmonary disease. Breast USD:Slightly complex fluid pockets immediately deep to the right and to a lesser extent left mastectomy incision's. Given the patient's recent surgery, diagnostic considerations include hematoma versus seroma. Abscess is considered less likely but is not entirely excluded. Mild generalized soft tissue edematous change of the chest wall bilaterally presumably on a postoperative basis. Ordered Studies 12/12/18 17:18 breast limited Urgent Hospital Course (1) Hypotension: (2) SIRS (systemic inflammatory response syndrome): (3) Status post bilateral mastectomy: Severe Sepsis Possible sources of Infection:NANCY drain --CXR:Mild volume overload may be present. No other evidence of acute cardio pulmonary disease. --Breast USD:Slightly complex fluid pockets immediately deep to the right and to a lesser extent left mastectomy incision's. Given the patient's recent surgery, diagnostic considerations include hematoma versus seroma. Abscess is considered less likely but is not entirely excluded. Mild generalized soft tissue edematous change of the chest wall bilaterally presumably on a postoperative basis. Blood Cx:No growth to date Urine Cx: No growth to date Wound Cx: Pansensitive Staph aureus Continue vancomycin, cefepime Day #4>>Transition to PO Abx Appreciate surgery input Received IV fluids Clinically improved (4) Hypokalemia: Resolved monitor (5) Breast cancer: recurrent right breast cancer s/p chemo, last dose in 09/2018. Follows with Dr Mercedes. S/P R mastectomy and prophylactic left mastectomy on 12/01/[address] Earl Continue wound care continue Anastrozole (6) Anemia: (7) Thrombocytopenia: Chronic Monitor CBC No bleeding issues (8) Hypertension: Currently hypotension Hold candesartan, HCTZ Monitor (9) Hypothyroidism: TSH: 3.1 Continue levothyroxine (10) CKD (chronic kidney disease), stage III: Cr baseline ~1.0 Monitor renal function Avoid nephrotoxic agents when possible (11) Diabetes mellitus, type II: A1c: 6.5 on 10/22/18 Diet controlled Continue ISS Monitor BGs (12) GERD (gastroesophageal reflux disease): Continue PPI DVT Px: SCDs Re: thrombocytopenia Code Status Full Code Disposition: Plan to discharge home when stable Total Time Total Time Spent Total Time Spent (In Minutes): 37 minutes Total Time Includes: Examination of the Patient, Discharge Planning, Medication Reconciliation, Communication With Other Providers and Other Discharge Plan Discharge Items Patient Disposition: Home - Self-Care Reason For Visit: HYPOTENSION Discharge Diagnosis: Sepsis NANCY drain infection Discharge Goals: Decrease discomfort, Improve disease control and Improve function Activity: Resume your previous activity Exercise/Sports: Gradually increase as tolerated Non-emergency contact: Primary Care Provider and Oncologist Call non-emergency contact if: you have any medication questions, your symptoms worsen, your pain is not controlled, your pain is worsening, your pain is unusual for you, your pain is concerning for you, you have a fever, your wound has increased redness, your wound has increased drainage and your wound pain has increased Follow-up/Referrals: Jose Sarah MD [Primary Care Provider] - Diet: Carb Consistent or DM2 Addtl Provider Instructions: Follow-up with your primary care physician Dr. Sarah in 1 week as advised Follow-up with your surgeon as scheduled Complete antibiotic course as prescribed Seek immediate medical attention if your symptoms reoccur or worsen Prescriptions: New doxycycline hyclate 100 mg Capsule 100 mg PO BID 6 Days Qty: 12 RF: 0 Continued anastrozole 1 mg Tablet 1 mg PO QAM RF: 0 ondansetron HCl [Zofran] 8 mg Tablet 8 mg PO TID PRN (Reason: Nausea) RF: 0 prochlorperazine maleate [Compazine] 10 mg Tablet 10 mg PO Q6H PRN (Reason: Nausea) RF: 0 benzonatate [Tessalon Perles] 100 mg Capsule 100 mg PO TID PRN (Reason: Cough) RF: 0 levothyroxine 75 mcg tablet 37.5 mcg PO HS RF: 0 hydrochlorothiazide 25 mg tablet 12.5 mg PO QAM RF: 0 allopurinol 300 mg tablet 300 mg PO QAM RF: 0 candesartan [Atacand] 16 mg Tablet 16 mg PO QAM RF: 0 omeprazole 40 mg capsule,delayed release(DR/EC) 40 mg PO QAM RF: 0 loratadine 10 mg Tablet 10 mg PO DAILY PRN (Reason: Allergy Symptoms) RF: 0 Multiple Vitamin, Womens Tablet 1 tab PO DAILY RF: 0 cholecalciferol (vitamin D3) [Vitamin D3] 1,000 unit Tablet 1,000 unit PO DAILY RF: 0 biotin 1,000 mcg Tablet,Chewable 1,000 mcg PO DAILY RF: 0 triamcinolone acetonide 0.1 % Cream 1 applic TOPICAL BID PRN (Reason: Skin Irritation) RF: 0 Stand-Alone Forms: [facility] Discharge Orders: Discharge Order (Routine); Ordered 12/15/18 Ordered By: Tommy Welch Admission Data Admit Date/Time: 12/12/18 14:13 Attending Provider: Tommy Welch Admit Provider: Jenny Simeon Primary Care Provider: Jose Sarah Other Providers: Jenny Simeon ; Srini Birch Service: Telemetry Medical Other Interventions: Discharge Summary Assessment (RN) Last Done: 12/15/18 10:43 DC Date/Time DO NOT enter until pt leaves facility: 12/15/18 11:51
== END 2018-12-15 11:51 | disposition home or self-care (01) | DRG 919 ==
LOC: ED 11:44 → 2N 14:13